=== PATIENT | male | born 1935 | race Caucasian/White ===

== ENCOUNTER → 2019-03-10 08:23 | Outpatient (CLI) | payer MEDICARE, SELFPAY ==
--- NOTE | 2019-03-10 09:30 | PET_ITS ---
EXAMINATION: FDG PET/CT ? Head to Pelvis INDICATIONS: An 83-year-old male with reported history of lymphoma presenting for restaging examination. COMPARISON EXAMINATION: CT of the abdomen and pelvis report dated 02/27/19, previous FDG PET-CT study dated 04/09/17 TECHNIQUE: Following the intravenous administration of 17.22 mCi of F-18 deoxyglucose, via the left antecubital fossa, multiplanar image acquisitions of the head, neck, chest, abdomen and pelvis to level of mid thigh, obtained at one hour post radiopharmaceutical administration contemporaneously interpreted with the current CT of the head, neck, chest, abdomen and pelvis to level of mid thigh, dated 03/10/[address] of the abdomen and pelvis report dated 02/27/19, previous FDG PET-CT study dated 04/09/17 reveal: SERUM GLUCOSE LEVEL: 85 mg/dl. HEIGHT: 65 inches. WEIGHT: 140 lbs. FINDINGS: 1. There is no quantitative scintigraphic evidence of abnormal increased glucose metabolism on meticulous inspection of whole body acquisitions to include all three axis reconstructions. 2. Normal physiologic distribution of the radiopharmaceutical is apparent in the hepatic and splenic parenchyma, both renal units, bladder and visualized intestinal tract. Symmetric glucose metabolism is evident in the occipital, frontal, parietal and temporal lobes of the cerebral cortex, as well as normal visualization of the basal ganglia and cerebellar hemispheres. Pertinent CT findings are as follows: CHEST: Linear densities defined in the bilateral lower anterior lung mendoza demonstrate no evidence of quantitatively significant increased FDG uptake. There is atherosclerotic calcification defined in the thoracic aorta without evidence of dilatation-aneurysm formation. Bilateral axillary soft tissue with fatty hilus is ametabolic. ABDOMEN AND PELVIS: There is atherosclerotic calcification defined in the abdominal aorta without evidence of dilatation-aneurysm formation. Pelvic arterial calcification is observed. A fat containing left inguinal hernia is noted. Urinary bladder diverticulum are noted to the right and left of the midline unchanged compared to the examination dated 04/09/17. Subcentimeter bilateral inguinal soft tissue densities are ametabolic. Colonic diverticulosis is defined. Dystrophic calcification is manifest within the prostate gland without evidence of facilitated FDG uptake. SKELETAL: Degenerative changes are noted in the cervical, thoracic and lumbar spine. PET/PET/CT Tumor Base -Thigh Subs IMPRESSION: 1. NEGATIVE EXAMINATION. There is no definitive quantitative scintigraphic evidence of recurrent/viable neoplasm. 2. Meticulous attention paid to the abdominal retroperitoneum and mesentery demonstrates no evidence of quantitatively significant enhanced FDG uptake to correlate with the anatomic abnormalities described on CT of the abdomen and pelvis report dated 02/27/19. 3. Overall, compared to the prior FDG PET study dated 04/09/17, there is current absence of defined viable neoplastic disease. Electronic Signature Lázaro Mancini D.O. Electronically Signed: Lázaro Mancini DO at 19:26 EST Tel , Service support ,
== END ==
PROVIDERS: Family Provider Family Medicine; PCP Family Medicine; Referring Provider Nurse Practitioner; Visit Provider Nurse Practitioner
DX: C83.38 Diffuse large B-cell lymphoma, lymph nodes of multiple sites (principal)
CPT/HCPCS: 78815; A9552

== ENCOUNTER 2022-07-21 01:39 | Emergency (ER) | payer MEDICARE, SELFPAY ==
[2022-07-21 01:40] VITALS: BP 112/55; PULSE 75; RESP 17; TEMP 37.2; O2SAT 97; BMI 21.6
--- NOTE | 2022-07-21 02:21 | RAD_ITS ---
STUDY: X-RAY CHEST REASON FOR EXAM: Male, 86 years old. Cough TECHNIQUE: PA and lateral views of the chest. COMPARISON: December 04, 2016 chest x-ray FINDINGS: There are patchy bilateral lower lobe infiltrates right greater than left. . There is increased AP diameter of the chest. Normal size heart. Normal mediastinum and ina. Normal visualized pulmonary arteries. There is atherosclerotic calcification of the aortic arch with tortuosity. There are diffuse degenerative changes of the visualized thoracic spine. Normal visualized ribs, clavicles, and shoulders. There is no demonstrated abnormality of the visualized soft tissue structures of the upper abdomen. RAD/Chest PA and Lateral IMPRESSION: Findings suspicious for bilateral lower lobe pneumonia. Electronically Signed: Gosia Gomez MD at 3:01 EDT ,
[2022-07-21 02:29] LABS: Absolute Lymphocyte Count 5.46 X10^3/uL (0.83-4.51); Absolute Neutrophil Count 9.8 X10^3/uL (2.0-7.7); Basophil# 0.05 X10^3/uL; Basophil% 0.3 % (0-1); Hematocrit 36.1 % (40-54); Hemoglobin 11.7 g/dL (13.0-16.5); Lymphocyte # 5.46 X10^3/ul (0.83-4.51); Lymphocyte % 35.1 % (19-41); Mean Corp Hgb Conc 32.4 g/dL (32-36); Mean Corpuscular Hgb 30.3 pg (27.0-32.0); Mean Corpuscular Volume 93.5 fL (80-94); Mean Platelet Vol. 8.8 fl (6.2-12.0); Monocyte# 0.14 X10^3/uL; Monocyte% 0.9 % (0-10); NRBC Flagged by Analyzer 0 % (0-5); Neutrophil % 62.9 % (47-70); POSITIVE DIFFERENTIAL YES; POSITIVE MORPHOLOGY YES; Platelet Count 230 K/mm3 (150-450); RBC Distribution Width CV 16.2 % (11.6-14.6); RBC Distribution Width SD 55.1 fl (35.1-43.9); Red Blood Count 3.86 M/mm3 (4.6-6.2); White Blood Count 15.6 K/mm3 (4.4-11.0)
[2022-07-21 02:40] LABS: Mucous, Urine 0 SEEN /hpf (<or=2+); Red Blood Cells-Urine 0 SEEN /hpf (0-5); Squamous Epithelial Cells - UA 0 SEEN /hpf (0-5); White Blood Cells 0 SEEN /hpf (0-5)
[2022-07-21 02:41] LABS: Color, Urine Yellow (Yellow); Glucose, Dipstick Normal (Normal); Ketone-Dipstick Negative (Negative); Leukocyte Esterase-Dipstick Negative /ul (Negative); Nitrite-Dipstick Negative (Negative); Occult Blood-Urine 10 /ul (Negative); Protein-Dipstick 30 mg/dl (Negative); Specific Gravity, Urine 1.015 (1.002-1.030); Urine Bilirubin Dipstick Negative (Negative); Urine Clarity Clear (Clear); Urine Urobilinogen Normal (Normal)
[2022-07-21 02:41] LABS: Differential Indicated SCAN CRITERIA MET
[2022-07-21 02:56] LABS: Amorphous Sediment 2+; Bacteria 2+ /hpf (None Seen); Hyaline Cast 0-5 SEEN /lpf (0-5)
[2022-07-21 02:58] LABS: Atypical Lymphocyte 2+ %; Differential Comment SCANNED; Toxic Granulation 3+
[2022-07-21 03:09] LABS: Anion Gap 10 (5-15); BUN 59 mg/dL (7-18); BUN/Creat Ratio 46.1 RATIO (10-20); Calcium,Total 8.7 mg/dL (8.5-10.1); Chloride 103 mmol/L (98-107); Creatinine, Serum 1.28 mg/dL (0.70-1.30); EST Glomerular Filtration Rate 57 mL/min (>60); Est Glom Filt Rate - Afr Amer 68 mL/min (>60); Estimated Creatinine Clearance 34.57 ml/min; Glucose 127 mg/dL (74-106); Potassium 4.5 mmol/L (3.5-5.1); Sodium Level 138 mmol/L (136-145)
--- NOTE | 2022-07-21 03:38 | EDS_ITS ---
HPI History of Present Illness Chief Complaint: Fever Informant: patient and spouse/S.O. Narrative Narrative: Patient is an 86-year-old male from home with history of chronic lymphocytic leukemia who is currently on oral chemo daily. He states he has been on this medication for approximately 1 month. He reports that he has a chronic cough which they have been investigating which is at his baseline. He states otherwise he is not having nausea vomiting diarrhea dysuria or muscle aches. He reports his evening he just felt off and therefore took his temperature and it was slightly elevated at 100.6. He waited roughly an hour and checked it again and it was 101 and secondary to his comes to the hospital for evaluation. [facility] Medical History (Updated 07/21/22 @ 06:[address] Joao Cook DO) Chronic anemia Chronic lymphocytic leukemia Former tobacco use Gout Home Medications psyllium husk (with sugar) 3.4 gram/12 gram oral powder (Metamucil (with sugar)) 575 g PO DAILY 10/24/16 [History Last Taken Unknown] red yeast rice 600 mg capsule 600 mg PO BID 10/24/16 [History Last Taken Unknown] saw palmetto 160 mg capsule 900 mg PO BID 10/24/16 [History Last Taken Unknown] allopurinol 300 mg tablet 300 mg PO DAILY 12/04/16 [History Last Taken Unknown] amoxicillin 875 mg-potassium clavulanate 125 mg tablet 875 mg PO Q12H ##10 12/04/16 [Rx Last Taken Unknown] levofloxacin 500 mg tablet 500 mg PO DAILY #5 tabs 12/04/16 [Rx Last Taken Unknown] ondansetron HCl 8 mg tablet 8 mg PO Q8H 12/04/16 [History Last Taken Unknown] levofloxacin 500 mg tablet 500 mg PO DAILY #7 tabs 07/21/22 [Rx Last Taken Unknown] Allergy/AdvReac Type Severity Reaction Status Date / Time No Known Allergies Allergy Verified 07/21/22 01:45 Family History (Updated 07/21/22 @ 03:[address] Gill Barry MD) Mother Diabetes Brother Cancer Sister Cancer Father Hearing loss Surgical History (Updated 07/21/22 @ 03:[address] Gill Barry MD) Status post excisional biopsy Social History (Updated 07/21/22 @ 03:[address] Gill Barry MD) household members: spouse Smoking Status: Former smoker alcohol intake: never substance use type: does not use ROS ROS ED Constitutional Constitutional ED: Reports fever(s); Denies chills ENT ENT ED: Denies rhinorrhea or sore throat Cardiovascular Cardiovascular: Denies chest pain Respiratory/Chest Respiratory/Chest: Denies cough or dyspnea Gastrointestinal Gastrointestinal: Denies abdominal pain, diarrhea, nausea or vomiting Genitourinary Genitourinary ED: Denies dysuria Musculoskeletal Musculoskeletal: Denies myalgias Integumentary Denies rash Neurologic Neurologic: Denies headache(s) Hematologic/Lymphatic Hematologic/Lymphatic: Denies easy bleeding or easy bruising EXAM Physical Exam Const Vital Signs: 07/21/22 01:40 07/21/22 01:40 Temperature 99 F Temperature Source Oral Pulse Rate 75 Respiratory Rate 17 Respiratory Effort Normal Respiratory Pattern Normal Blood Pressure 112/55 L Blood Pressure Mean 74 Pulse Ox 97 Oxygen Delivery Method Room Air Positive well nourished and well developed General Appearance ED: well developed HEENT Reports moist mucous membranes HEENT Narrative: Mild cobblestoning the posterior pharynx without airway edema or compromise No secondary changes in the posterior pharynx to suggest infection Eyes PERRL and EOMs intact bilaterally Neck supple and no JVD Neck Narrative: No nuchal rigidity or meningeal signs present Chest Wall palpation of chest normal Resp normal respiratory effort Resp Narrative: Patient has faint rhonchi in the bilateral lower lobes but no nasal flaring re tractions tachypnea or accessory muscle use Cardio regular rate and regular rhythm Rate: other Other Details: Radial pulses are plus 2 out of 4 bilaterally are equal and symmetric GI normal to inspection, nondistended, normoactive bowel sounds, non-tender, non- distended and no masses GI Narrative: No voluntary guarding or rigidity no pulsatile mass Auscultation: normoactive bowel sounds Palpation: soft Back/Spine no CVA tenderness Extremity normal to inspection Extremity Narrative: No asymmetric edema no pitting edema negative Homans' sign bilaterally Neuro oriented x3 and CN's II-XII intact bilaterally Sensorium / Orientation: alert Psych mental status grossly normal Skin no rashes or lesions noted General Skin Exam: Negative for jaundice MDM MDM MDM Narrative Medical decision making narrative: Patient presented to the ER technically afebrile with a temperature of 99 d egrees and states he did not take any type of Tylenol Motrin or antipruritic medication prior to arrival. He is in no acute respiratory distress and vitals are stable. He has had spontaneous resolution of his fever and according to the patient and there is no associated symptoms. However with his daily chemotherapy there is concern for neutropenic fever and so basic blood work was ordered. Patient's white count is elevated at 15.6 but he has a history of CLL which could be near his baseline but I have no old labs to go off of. His neutrophil count is slightly elevated 9.8 going against neutropenia. Electrolytes show no sign of acute kidney injury or severe electrolyte derangement. Urine questions back infection with +2 bacteria but there are no white cells and patient does not have dysuria so this is unlikely. Chest x-ray shows changes concerning for developing pneumonia and patient does have a cough but states it has been more chronic in nature. At this time the patient is afebrile and normotensive he satting in the high 90s on room air and he is not neutropenic therefore do not feel there is need for admission. Urine will be sent for culture as there is concern for secondary infection but at this time in order to cover the lung tissue as well as urine patient will be started on Levaquin. As he is not hypotensive or neutropenic requiring supplemental oxygen he can be discharged home and follow-up on an outpatient basis History & Record Review Discussion w/independent historian: Patient and Significant other Lab Data Attestation: I reviewed the patient's lab results. Labs: Laboratory Results - last 24 hr 07/21/22 07/21/22 07/21/22 02:05 02:05 02:26 WBC 15.6 H RBC 3.86 L Hgb 11.7 L Hct 36.1 L MCV 93.5 MCH 30.3 MCHC 32.4 RDW Std Deviation 55.1 H RDW Coeff of Albin 16.2 H Plt Count 230 MPV 8.8 Immature Gran % (Auto) 0.800 Neut % (Auto) 62.9 Lymph % (Auto) 35.1 [place] % (Auto) 0.9 Eos % (Auto) 0.0 Baso % (Auto) 0.3 Absolute Neuts (auto) 9.8 H Absolute Lymphs (auto) 5.46 H Nucleated RBC % 0 Differential Comment SCANNED Atypical Lymphocytes 2+ Toxic Granulation 3+ Sodium 138 Potassium 4.5 Chloride 103 Carbon Dioxide 25.0 Anion Gap 10 BUN 59 H Creatinine 1.28 Estim Creat Clear Calc 34.57 Est GFR (MDRD) Af Amer 68 Est GFR (MDRD) Non-Af 57 L BUN/Creatinine Ratio 46.1 H Glucose 127 H Calcium 8.7 Urine Color Yellow Urine Clarity Clear Urine pH 5.0 Ur Specific [place] 1.015 Urine Protein 30 H Urine Glucose (UA) Normal Urine Ketones Negative Urine Occult Blood 10 H Urine Nitrite Negative Urine Bilirubin Negative Urine Urobilinogen Normal Ur Leukocyte Esterase Negative Urine RBC 0 SEEN Urine WBC 0 SEEN Ur Squamous Epith Cells 0 SEEN Amorphous Sediment 2+ Urine Bacteria 2+ Hyaline Casts 0-5 SEEN Urine Mucus 0 SEEN Radiography Diagnostic Testing: Clinical Impression(s) from Imaging Studies Chest X-Ray 07/21/22 02:21 IMPRESSION: Findings suspicious for bilateral lower lobe pneumonia. Electronically Signed: Gosia Gomez MD at 3:01 EDT Reading Location ID and State: [facility] / [place] Tel , Service support , Chest x-ray as interpreted by the emergency medicine physician reveals hazy opacities in the bilateral lower lobes concerning for bilateral pneumonia Discharge Plan Triage Chief Complaint: Fever ED Provider: Joao Cook Dx/Rx/DC Orders Clinical Impression: Leukocytosis, Pneumonia, Chronic lymphocytic leukemia Instructions: ED Pneumonia (Adult) Prescriptions: New levofloxacin 500 mg tablet 500 mg PO DAILY Qty: 7 0RF No Action saw palmetto 160 MG capsule 900 mg PO BID red yeast rice 600 MG capsule 600 mg PO BID psyllium husk (with sugar) [Metamucil (with sugar)] 575 GM powder 575 g PO DAILY ondansetron HCl 8 MG tablet 8 mg PO Q8H Label Comments: take 1 tablet by mouth every 8 hours if needed for nausea and vomiting allopurinol 300 MG tablet 300 mg PO DAILY Label Comments: take 1 tablet by mouth once daily levofloxacin 500 MG tablet 500 mg PO DAILY Qty: 5 0RF amoxicillin-pot clavulanate 875 MG tablet 875 mg PO Q12H Qty: 10 0RF Primary Care Provider: Cece Yadav NP Referrals: Cece Yadav NP, [employer] [Primary Care Provider] - Activity Restrictions/Additional Instructions: Your work-up today shows an elevated white blood cell count as well as neutrophil count. Your x-ray questions pneumonia and with the fever noted at home and your history of cancer is most appropriate to cover you for infection. However as you are not neutropenic there is no need to keep you in the hospital. Please contact your oncologist to go over the work-up and plan of care and return to the ER should you have any further concerns Disposition Disposition: Home, Self Care Discharge Date/Time: 07/21/22 04:05
[2022-07-21] MEDS: levoFLOXacin 500 MG Tablet PO (04:02)
== END 2022-07-21 04:05 | disposition home or self-care (01) ==
PROVIDERS: Emergency Provider Emergency Medicine; PCP Registered Nurse; Visit Provider Emergency Medicine
DX: J18.9 Pneumonia, unspecified organism (principal); C91.10 Chronic lymphocytic leukemia of B-cell type not having achieved remission; Z79.899 Other long term (current) drug therapy; Z92.21 Personal history of antineoplastic chemotherapy; Z87.891 Personal history of nicotine dependence
CPT/HCPCS: 71046; 80048; 81001; 85025; 87086; 87428; 99283; A4216

== ENCOUNTER → 2023-01-05 | Outpatient (CLI) | payer MEDICARE, SELFPAY ==
--- NOTE | 2023-01-05 14:45 | CT_ITS ---
STUDY: CTA NECK WITH CONTRAST REASON FOR EXAM: Male, 87 years old. carotid stenosis RADIATION DOSAGE (If Supplied By Facility): CTDIvol = ( 17.64 ) mGy, DLP = ( 396.31 ) mGycm TECHNIQUE: CT angiography with multi-detector data acquisition was performed from the aortic arch to the skull base following intravenous administration of IV 100mL Isovue-370. MIP images were reconstructed from the axial data set. Post-processing of the angiographic images was performed, with multiplanar reformation and 3D reconstruction. Individualized dose optimization techniques were used for this CT. COMPARISON: None. FINDINGS: AORTIC ARCH: Normal visualized aortic arch. Normal origins of the brachiocephalic, left common carotid, and left subclavian arteries. RIGHT CAROTID ARTERIES: Minor calcific plaquing of the right common carotid artery (CCA). Normal right common carotid bulb. Normal origin of the right internal carotid (ICA) artery without a hemodynamically significant stenosis. Normal visualized cervical portion of the right internal carotid artery. Normal origin of the right external carotid artery (ECA). LEFT CAROTID ARTERIES: Normal left common carotid artery (CCA). Minor calcific plaquing of the left common carotid bulb. Minor calcific plaquing of the origin of the left internal carotid (ICA) artery without a hemodynamically significant stenosis. Normal visualized cervical portion of the left internal carotid artery. Normal origin of the left external carotid artery (ECA). VERTEBRAL ARTERIES: Normal bilateral vertebral arteries. Incidental finding of enhancing nodule in the right lobe of thyroid which may be further assessed with ultrasound CT/CTA Neck W/WO Contrast IMPRESSION: Minor atherosclerotic change without evidence for hemodynamically significant stenosis utilizing NASCET criteria. Incidental finding of solid nodule right lobe of the thyroid which may be further assessed with ultrasound Electronically Signed: Nash Izquierdo MD at 16:18 EDT ,
[2023-01-05 15:14] LABS: CREATININE FINGERSTICK 1.1 mg/dL (0.70-1.30); EGFR FINGERSTICK > 60.0000 mL/min (>60)
== END | disposition home or self-care (01) ==
LOC: CT 14:43
PROVIDERS: PCP Registered Nurse; Referring Provider Surgery Trauma Surgery; Visit Provider Surgery Trauma Surgery
DX: I65.23 Occlusion and stenosis of bilateral carotid arteries (principal)
CPT/HCPCS: 70498; Q9967

== ENCOUNTER → 2023-12-24 | Outpatient (CLI) | payer MEDICARE, SELFPAY ==
--- NOTE | 2023-12-24 09:49 | CDU_ITS ---
Reason For Study: CAROTID ARTERY DISEASE Rt. Velocities/BP Lt. Velocities/BP Prox CCA 48.1/7.5 cm/sec. Prox CCA 78.5/9.7 cm/sec. Mid CCA 66.0/9.4 cm/sec. Mid CCA 77.2/12.2 cm/sec. Dist CCA 57.5/9.4 cm/sec. Dist CCA 63.7/12.2 cm/sec. Prox ICA 65.0/14.6 cm/sec. Prox ICA 87.1/22.0 cm/sec. Mid ICA 74.8/22.0 cm/sec. Mid ICA 420.6/100.3 cm/sec. Dist ICA 101.4/25.3 cm/sec. Dist ICA 132.2/32.0 cm/sec. Rt. ICA/CCA = 101.4/66.0=1.5. Lt. ICA/CCA = 420.3/100.3=4.2. Prox ECA 88.3/0.0 cm/sec. Prox ECA 84.6/0.0 cm/sec. Rt. Vert. 47.1/11.2 cm/sec. Lt. Vert. 60.3/12.0 cm/sec. Right Extracranial There is homogeneous, smooth atherosclerotic plaque noted in the right common carotid artery. There is heterogeneous, smooth atherosclerotic plaque noted in the right internal carotid artery. There is heterogeneous, smooth atherosclerotic plaque noted in the right external carotid artery. Antegrade flow is noted in the right vertebral artery. Left Extracranial There is homogeneous, smooth atherosclerotic plaque noted in the left common carotid artery. There is homogeneous, smooth atherosclerotic plaque noted in the left internal carotid artery. There is homogeneous, smooth atherosclerotic plaque noted in the left external carotid artery. Antegrade flow is noted in the left vertebral artery. Procedure Carotid Duplex [id number]. This is a Carotid Duplex examination using B-mode, color flow and specral Doppler. Exam performed in department. [facility] notified of findings @ 10:15 am. VL/Carotid Duplex Ultrasound Interpretation Summary Mild (<50%) stenosis right extracranial internal carotid. Severe (>70%) stenosis left extracranial internal carotid. Patent and antegrade vertebrals bilaterally. Ordering Physician: Alessia Bautista Referring Physician: Cece Yadav Performed By: Idania Segundo RDCS, RVT
== END | disposition home or self-care (01) ==
LOC: CVS 09:48
PROVIDERS: PCP Registered Nurse; Referring Provider Physician Assistant; Visit Provider Physician Assistant
DX: I65.23 Occlusion and stenosis of bilateral carotid arteries (principal)
CPT/HCPCS: 93880

== ENCOUNTER → 2024-01-10 | Outpatient (CLI) | payer MEDICARE, SELFPAY ==
--- NOTE | 2024-01-10 14:19 | CT_ITS ---
STUDY: CTA HEAD AND NECK WITH CONTRAST REASON FOR EXAM: Male, 88 years old. left carotid stenosis RADIATION DOSAGE (If Supplied By Facility): CTDIvol = ( 30.76 ) mGy, DLP = ( 1600.94 ) mGycm TECHNIQUE: CT angiography was performed with a multi-detector CT scanner. Data acquisition was obtained from the skull base through the vertex following intravenous administration of IV 100mL Isovue-370. MIP images were reconstructed from the axial data set. Post-processing of the angiographic images was performed, with multiplanar reformation and 3D reconstruction. Individualized dose optimization techniques were used for this CT. COMPARISON: CTA of the neck dated January 05, 2023. FINDINGS: Normal bilateral petrous carotid arteries. There is calcified plaque formation of the right cavernous carotid artery, without a cross-sectional luminal stenosis. There is calcified plaque formation of the left cavernous carotid artery, without a cross-sectional luminal stenosis. Normal right A1 segments of the anterior cerebral artery. Normal left A1 segments of the anterior cerebral artery. Normal intact anterior communicating artery (ACOM). Normal bilateral A2 segments of the anterior cerebral arteries. Normal right M1 and M2 segments of the middle cerebral arteries, with a normal M1 bifurcation. Normal left M1 and M2 segments of the middle cerebral arteries, with a normal M1 bifurcation. Normal right posterior communicating artery (PCOM). Normal left posterior communicating artery (PCOM). There is a small atretic left vertebral artery with a dominant right vertebral artery. Normal basilar artery with a normal basilar bifurcation. The visualized bilateral superior cerebellar (SCA) arteries are normal. Normal bilateral P1, P2 and visualized P3 segments of the posterior cerebral arteries. There is no demonstrated aneurysm of the [place] of [place]. No demonstrated thrombus or occlusion or hemodynamically significant stenosis of the major intracranial arteries. Fully patent and normal enhancement of the major intracranial venous sinuses, with no evidence of venous sinus thrombosis or occlusion. NECK CTA: AORTIC ARCH: There is atherosclerotic calcific plaque formation of the aortic arch and great vessels arising from the aortic arch, without a hemodynamically significant stenosis. There is a normal origin of the brachiocephalic, left common carotid, and left subclavian arteries. Normal origins of the brachiocephalic, left common carotid, and left subclavian arteries. RIGHT CAROTID ARTERIES: Normal right common carotid artery (CCA). Normal right common carotid bulb. There is mild atherosclerotic plaque formation of the origin of the right internal carotid artery with less than 50% cross sectional diameter stenosis. Normal visualized cervical portion of the right internal carotid artery. Normal origin of the right external carotid artery (ECA). LEFT CAROTID ARTERIES: Normal left common carotid artery (CCA). There is mild atherosclerotic plaque formation with minimal narrowing of the left carotid bulb. There is mild atherosclerotic plaque formation of the origin of the left internal carotid artery with less than 25 % cross sectional diameter stenosis. Normal visualized cervical portion of the left internal carotid artery. Normal origin of the left external carotid artery (ECA). VERTEBRAL ARTERIES: Normal bilateral vertebral arteries. No demonstrated vertebral artery thrombus or occlusion or dissection. CT/CTA Head AND Neck W/ Contrast IMPRESSION: No demonstrated large vessel occlusion 1. Head CTA: There is no demonstrated aneurysm of the [place] of Bone. No demonstrated thrombus or occlusion or hemodynamically significant stenosis of the major intracranial arteries. Fully patent and normal enhancement of the major intracranial venous sinuses, with no evidence of venous sinus thrombosis or occlusion. 2. Neck CTA: Mild atherosclerotic plaque in the left carotid bulb and ICA origin with mild narrowing. No hemodynamically significant stenosis or occlusion is present. Mild atherosclerotic stenosis in the middle one third aspect of the right internal carotid artery in the neck. 3. MRI of the brain can be obtained for small infarcts and perforating vessel disease not detected by CT. Electronically Signed: Emir Patel MD at 10:47 EDT ,
[2024-01-10 15:03] LABS: CREATININE FINGERSTICK < 1.0 mg/dL (0.70-1.30); EGFR FINGERSTICK > 60.0000 mL/min (>60)
== END | disposition home or self-care (01) ==
LOC: CT 14:18
PROVIDERS: PCP Registered Nurse; Referring Provider Surgery Trauma Surgery; Visit Provider Surgery Trauma Surgery
DX: I65.22 Occlusion and stenosis of left carotid artery (principal)
CPT/HCPCS: 70496; 70498; Q9967

== ENCOUNTER → 2024-12-24 | Outpatient (CLI) | payer MEDICARE, SELFPAY ==
--- NOTE | 2024-12-24 10:45 | CDU_ITS ---
Reason For Study Reason For Study: Carotid Stenosis Rt. Velocities/BP Lt. Velocities/BP Prox CCA 78.4/12.4 cm/sec. Prox CCA 124.2/12.3 cm/sec. Mid CCA 58.9/12.7 cm/sec. Mid CCA 68.3/13.0 cm/sec. Dist CCA 58.9/9.5 cm/sec. Dist CCA 53.4/13.8 cm/sec. Prox ICA 63.4/15.5 cm/sec. Prox ICA 210.3/45.5 cm/sec. Mid ICA 105.2/24.9 cm/sec. Mid ICA 139.7/25.9 cm/sec. Dist ICA 87.9/23.8 cm/sec. Dist ICA 82.5/16.7 cm/sec. Rt. ICA/CCA = 1.8. Lt. ICA/CCA = 3.1. Prox ECA 86.7/0.0 cm/sec. Prox ECA 85.5/0.0 cm/sec. Rt. Vert. 43.7/11.8 cm/sec. Lt. Vert. 50.4/0.0 cm/sec. Right Extracranial There is intimal thickening but no significant atherosclerotic plaque noted in the right common carotid artery. There is heterogeneous, irregular atherosclerotic plaque noted in the right internal carotid artery. There is heterogeneous, smooth atherosclerotic plaque noted in the right external carotid artery. Antegrade flow is noted in the right vertebral artery. Left Extracranial There is homogeneous, smooth atherosclerotic plaque noted in the left common carotid artery. There is heterogeneous, irregular atherosclerotic plaque noted in the left internal carotid artery. There is heterogeneous, irregular atherosclerotic plaque noted in the left external carotid artery. Antegrade flow is noted in the left vertebral artery. Procedure Carotid Duplex [id number]. This is a Carotid Duplex examination using B-mode, color flow and specral Doppler. Exam performed in department. VL/Carotid Duplex Ultrasound Interpretation Summary Mild (<50%) stenosis right extracranial internal carotid. Moderate (50-69%) stenosis left extracranial internal carotid. Patent and antegrade vertebrals bilaterally. Ordering Physician: Alessia Bautista Referring Physician: Cece Yadav NP Performed By: Tegan Akers and Student, RVT
== END | disposition home or self-care (01) ==
PROVIDERS: PCP Registered Nurse; Referring Provider Physician Assistant; Visit Provider Physician Assistant
DX: I65.23 Occlusion and stenosis of bilateral carotid arteries (principal)
CPT/HCPCS: 93880